=== PATIENT | male | born 1990 | race Caucasian/White ===

== ENCOUNTER 2018-09-20 09:41 | Emergency (ER) | payer MEDICAID ==
[~2018-09-20] VITALS: Ht 172.7 cm; Wt 68.9 kg
[2018-09-20 09:43] VITALS: BP_SYST 142
--- NOTE | 2018-09-20 09:46 | NUR ---
AMBULATED TO BED 6
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
--- NOTE | 2018-09-20 10:10 | NUR ---
ER Dr. Curry at bedside examining patient.
[2018-09-20 10:45] VITALS: BP_SYST 142
--- NOTE | 2018-09-20 10:45 | NUR ---
Note undone in EDM - 09/20/18 at 1257 by [facility] Patient given written and verbal discharge instructions and verbalizes understanding. ER discussed with patient the results and treatment provided. Patient in stable condition. ID arm band removed. Rx of given. Patient educated on pain management and to follow up with PMD. Pain Scale 3/10. Opportunity for questions provided and answered. Medication side effect fact sheet provided.
--- NOTE | 2018-09-20 10:45 | NUR ---
Patient given written and verbal discharge instructions and verbalizes understanding. ER MD discussed with patient the results and treatment provided. Patient in stable condition. ID arm band removed. Rx of tramadol, zithromax, zyrtec given. Patient educated on pain management and to follow up with PMD. Pain Scale 3/10. Opportunity for questions provided and answered. Medication side effect fact sheet provided.
--- NOTE | 2018-09-20 12:57 | NUR ---
Note undone in EDM - 09/20/18 at 1258 by [facility] Patient given written and verbal discharge instructions and verbalizes understanding. ER discussed with patient the results and treatment provided. Patient in stable condition. ID arm band removed. Rx of tramadol, zithromax, zyrtec given. Patient educated on pain management and to follow up with PMD. Pain Scale 3/10. Opportunity for questions provided and answered. Medication side effect fact sheet provided.
== END 2018-09-20 10:45 | disposition home or self-care (01) ==
LOC: SED 09:41
DX: H66.92 Otitis media, unspecified, left ear (principal); Z88.1 Allergy status to other antibiotic agents; Z88.8 Allergy status to other drugs, medicaments and biological substances
CPT/HCPCS: 99283

== ENCOUNTER 2021-01-03 17:51 | Emergency (ER) | payer MEDICAID, SELFPAY ==
[~2021-01-03] VITALS: Ht 172.7 cm; Wt 70.3 kg
[2021-01-03 18:13] VITALS: BP_SYST 142
--- NOTE | 2021-01-03 18:20 | NUR ---
Patient to ER TENT 1 to gown for evaluation. Side rails up.
[2021-01-03 19:05] LABS: STREPTOCOCCUS A SCREEN (RAPID) NEGATIVE (NEGATIVE)
[2021-01-03] MEDS ORDERED: IBUP-1971 PO (19:27)
[2021-01-03] MEDS ORDERED: PSEU30TA36 PO (19:27)
[2021-01-03 19:40] VITALS: BP_SYST 136
--- NOTE | 2021-01-03 19:40 | NUR ---
Patient given written and verbal discharge instructions and verbalizes understanding. ER MD discussed with patient the results and treatment provided. Patient in stable condition. ID arm band removed. Rx of SUDAFED AND MOTRIN given. Patient educated on pain management and to follow up with PMD. Pain Scale 0/10 Opportunity for questions provided and answered. Medication side effect fact sheet provided.
== END 2021-01-03 19:40 | disposition home or self-care (01) ==
LOC: SED 17:51
DX: J02.9 Acute pharyngitis, unspecified (principal); Z88.8 Allergy status to other drugs, medicaments and biological substances; Z79.899 Other long term (current) drug therapy; Z20.822 Contact with and (suspected) exposure to COVID-19
CPT/HCPCS: 36415; 71045; 72100-TC; 86403; 87081; 99284